=== PATIENT | female | born 1990 | race Caucasian/White ===

== ENCOUNTER 2016-07-27 13:38 | Emergency (ER) | payer OTHER ==
[~2016-07-27] VITALS: Ht 165.1 cm; Wt 56.0 kg
[2016-07-27 13:40] VITALS: BP 96/63; PULSE 77; RESP 12; TEMP 98.8; O2SAT 98
--- NOTE | 2016-07-27 14:02 | PD ---
Physical Exam Time Seen by Provider: 13:58 Narrative 26 year old female presents to ED for evaluation of abdominal pain; right side while she is sitting and left side while standing. 5-6/10-10/10. Pain is worse after eating. It is like a band above her umbilicus. Pain has worsened over the last 7 days. No urinary symptoms; some nausea. A couple episodes of diarrhea. No fever or chills. LMP last week. No vaginal discharge or bleeding. No history of abdominal surgeries. Data Data Last Documented VS Vital Signs Date Time Temp Pulse Resp B/P Pulse Ox O2 Delivery O2 Flow Rate FiO2 07/27/16 13:40 98.8 77 12 96/63 98 MDM Medical Record Reviewed: Yes Supervised Visit with INDIRA: No Narrative Course 26 year old female presents to ED for evaluation of abdominal pain x 7 days. Appears uncomfortable; without distress. VSS Condition: Stable Ciera Medrano Jul 27, 2016 14:02
[2016-07-27 15:25] VITALS: BP 99/51; PULSE 78; RESP 18; O2SAT 98
[2016-07-27] MEDS ORDERED: ALUMINUM/MAGNESIUM/SIMETH 30 ML CUP PO ONE (15:30)
[2016-07-27] MEDS ORDERED: ATROPINE/SCOPOLAM/HYOSCYAM/PB ELIXIR 10 ML CUP PO ONE (15:30)
[2016-07-27] MEDS ORDERED: LIDOCAINE VISCOUS 2% SOLN 15 ML UDC SWISH-SWAL ONE (15:30)
[2016-07-27 15:33] LABS: AUTOMATED NEUTROPHIL # 3.9 TH/MM3 (1.8-7.7); BASOPHIL % 0.4 % (0.0-2.0); EOSINOPHIL # 0.1 TH/MM3 (0-0.4); EOSINOPHIL % 1.3 % (0.0-4.0); HEMATOCRIT 40.6 % (35.0-46.0); HEMO FLAGS DIFF FINAL; LYMPH % 30.6 % (9.0-44.0); LYMPHOCYTE # 1.9 TH/MM3 (1.0-4.8); MEAN CELL VOLUME 85.5 FL (80.0-100.0); MEAN CORPUSCULAR HEMOGLOBIN 29.7 PG (27.0-34.0); MEAN CORPUSCULAR HGB CONC 34.7 % (32.0-36.0); MONO % 5.7 % (0.0-8.0); PLATELET COUNT 181 TH/MM3 (150-450); RED BLOOD COUNT 4.75 MIL/MM3 (4.00-5.30); RED CELL DISTRIBUTION WIDTH 13.5 % (11.6-17.2); WHITE BLOOD COUNT 6.2 TH/MM3 (4.0-11.0)
[2016-07-27 15:56] LABS: ANION GAP 7 MEQ/L (5-15); AST (GOT) 10 U/L (15-37); BICARBONATE 26.6 MEQ/L (21.0-32.0); BLOOD UREA NITROGEN 11 MG/DL (7-18); CHLORIDE 105 MEQ/L (98-107); GLOMERULAR FILTRATION RATE 71 ML/MIN (>89); POTASSIUM 4.1 MEQ/L (3.5-5.1); SODIUM (NA) 139 MEQ/L (136-145)
[2016-07-27 15:59] LABS: ALKALINE PHOSPHATASE 54 U/L (45-117); ALT (GPT) 20 U/L (10-53); TOTAL BILIRUBIN ADULT 0.7 MG/DL (0.2-1.0)
[2016-07-27] MEDS ORDERED: ZANT150T2 PO (16:16)
[2016-07-27] MEDS ORDERED: SUCR1TAB PO (16:16)
--- NOTE | 2016-07-27 16:16 | PD ---
HPI Chief Complaint: Abdominal Pain Time Seen by Provider: 14:44 Travel History International Travel<30 days: No Contact w/Intl Traveler<30days: No Traveled to known affect area: No History of Present Illness HPI This is a 26-year-old female who presents to the emergency department with 1 week of epigastric discomfort, intermittent, worse after she eats, moderate severity, nonradiating. She has had some nausea but no vomiting. She denies any fevers, chills, diarrhea, dysuria, or vaginal bleeding. She doesn't think she is and she's been having her regular menstrual cycle. [facility] Past Medical History Medical History: Denies Significant Hx Tetanus Vaccination: Unknown Influenza Vaccination: No ?: Not LMP: 07/20/16 Past Surgical History Surgical History: No Previous Surgery Social History Alcohol Use: No Tobacco Use: No Substance Use: No Allergies-Medications (Allergen,Severity, Reaction): Coded Allergies: No Known Allergies (Unverified , 07/27/16) Review of Systems Except as stated in HPI: all other systems reviewed are Neg Physical Exam Narrative GENERAL:Well appearing, no acute distress SKIN: Focused skin assessment warm and dry. HEAD: Atraumatic. Normocephalic. EYES: Pupils equal and round. No injection or drainage. ENT: Moist mucous membranes NECK: Trachea midline. CARDIOVASCULAR: Regular rate and rhythm. No murmur appreciated. RESPIRATORY: Clear to auscultation. Breath sounds equal bilaterally. GASTROINTESTINAL: Abdomen soft, tender to palpation in the epigastrium with no rebound or guarding. MUSCULOSKELETAL: No obvious deformities. NEUROLOGICAL: Awake and alert. No obvious cranial nerve deficits. Moving all extremities. PSYCHIATRIC: Appropriate mood and affect; insight and judgment normal. Data Data Last Documented VS Vital Signs Date Time Temp Pulse Resp B/P Pulse Ox O2 Delivery O2 Flow Rate FiO2 07/27/16 15:25 78 18 99/51 98 Room Air 07/27/16 13:40 98.8 Orders Complete Blood Count With Diff (07/27/16 15:08) Comprehensive Metabolic Panel (07/27/16 15:08) Lipase (07/27/16 15:08) ^ Insert Iv (07/27/16 15:08) Ed Urine Pregnancytest Poc (07/27/16 15:08) Al-Mag Hy-Si 40-40-4 Mg/Ml Liq (Mag-Al P (07/27/16 15:30) Lidocaine 2% Viscous (Xylocaine 2% Visco (07/27/16 15:30) Mruvd-Fbzasp-Tigtkx-Pb Liq ( Liq (07/27/16 15:30) Labs Laboratory Tests Test 07/27/16 15:12 White Blood Count 6.2 TH/MM3 Red Blood Count 4.75 MIL/MM3 Hemoglobin 14.1 GM/DL Hematocrit 40.6 % Mean Corpuscular Volume 85.5 FL Mean Corpuscular Hemoglobin 29.7 PG Mean Corpuscular Hemoglobin 34.7 % Concent Red Cell Distribution Width 13.5 % Platelet Count 181 TH/MM3 Mean Platelet Volume 8.5 FL Neutrophils (%) (Auto) 62.0 % Lymphocytes (%) (Auto) 30.6 % Monocytes (%) (Auto) 5.7 % Eosinophils (%) (Auto) 1.3 % Basophils (%) (Auto) 0.4 % Neutrophils # (Auto) 3.9 TH/MM3 Lymphocytes # (Auto) 1.9 TH/MM3 Monocytes # (Auto) 0.4 TH/MM3 Eosinophils # (Auto) 0.1 TH/MM3 Basophils # (Auto) 0.0 TH/MM3 CBC Comment DIFF FINAL Differential Comment Sodium Level 139 MEQ/L Potassium Level 4.1 MEQ/L Chloride Level 105 MEQ/L Carbon Dioxide Level 26.6 MEQ/L Anion Gap 7 MEQ/L Blood Urea Nitrogen 11 MG/DL Creatinine 0.95 MG/DL Estimat Glomerular Filtration 71 ML/MIN Rate Random Glucose 80 MG/DL Calcium Level 9.1 MG/DL Total Bilirubin 0.7 MG/DL Aspartate Amino Transf 10 U/L (AST/SGOT) Alanine Aminotransferase 20 U/L (ALT/SGPT) Alkaline Phosphatase 54 U/L Total Protein 7.9 GM/DL Albumin 4.5 GM/DL Lipase 80 U/L [facility] Medical Decision Making Medical Screen Exam Complete: Yes Emergency Medical Condition: Yes Interpretation(s) Afebrile, no tachycardia, normotensive No leukocytosis Electrolytes are reassuring Lipase is normal test is negative Differential Diagnosis Gastritis, ulcer disease, pancreatitis, , cholelithiasis, cholecystitis Narrative Course This is a 26-year-old female who presents to the emergency department with epigastric discomfort, mostly postprandial. This is her third visit to a health care provider for this. She was initially prescribed some Zofran and then hycosamine. She appears quite well and has a benign exam. Labs were obtained which were all reassuring including a normal lipase. NC test is negative. Patient was given a GI cocktail and will be discharged on Zantac for likely gastritis. Diagnosis Primary Impression: Gastritis Qualified Code: K29.00 - Acute gastritis without hemorrhage, unspecified gastritis type Referrals: Pilar Alfaro MD Patient Instructions: General Instructions Additional Instructions: If you develop severe or worsening abdominal pain, fever>100.4, persistent vomiting or inability to eat or drink return to the emergency department immediately. Follow up with your primary care physician in 1-2 days for a check-up. Med/Other Pt SpecificInfo: Prescription(s) given Scripts Sucralfate 1 Gm Tab1 Gm PO TID #90 TAB Ref 0 on empty stomach Prov:Lay Galindo MD 07/27/16 Ranitidine (Zantac)150 Mg Dvp226 Mg PO DAILY #30 TAB Ref 0 Prov:Lay Galindo MD 07/27/16 Disposition: 01 DISCHARGE HOME Condition: Stable Lay Galindo MD Jul 27, 2016 16:16
[2016-07-27] MEDS ORDERED: HYOS0.128 PO (16:25)
== END 2016-07-27 16:34 | disposition home or self-care (01) ==
LOC: NEPD 13:38
DX: K29.00 Acute gastritis without bleeding (principal)
CPT/HCPCS: 80053; 83690; 84703; 85025; 99284

== ENCOUNTER 2017-06-27 10:02 | Emergency (ER) | payer OTHER ==
[~2017-06-27] VITALS: Ht 165.1 cm; Wt 58.0 kg
[~2017-06-27 10:02] MED LIST: HYOS1TAB9 PO; SUCR1TAB PO; ZANT150T2 PO
[2017-06-27 10:26] VITALS: BP 122/70; PULSE 68; RESP 15; TEMP 97.4; O2SAT 99
--- NOTE | 2017-06-27 11:55 | RADRPT ---
EXAM DATE/TIME: 06/27/2017 11:30 [facility] COMPARISON: No previous studies available for comparison. INDICATIONS : Sudden onset middle chest pain. No known injury. MEDICAL HISTORY : None. SURGICAL HISTORY : None. ENCOUNTER: Initial ACUITY: 1 day PAIN SCORE: 4/10 LOCATION: middle chest FINDINGS: PA and lateral views of the chest demonstrate the lungs to be symmetrically aerated without evidence of mass, infiltrate or effusion. The cardiomediastinal contours are unremarkable. Osseous structure s are intact. CONCLUSION: 1. No acute cardiopulmonary disease. Stefano Almaguer MD on June 27, 2017 at 11:53 Board Certified Radiologist. This report was verified electronically.
[2017-06-27 12:43] LABS: AUTOMATED NEUTROPHIL # 4.8 TH/MM3 (1.8-7.7); BASOPHIL % 0.3 % (0.0-2.0); EOSINOPHIL # 0.1 TH/MM3 (0-0.4); EOSINOPHIL % 1.2 % (0.0-4.0); HEMATOCRIT 41.4 % (35.0-46.0); LYMPH % 27.8 % (9.0-44.0); MEAN CORPUSCULAR HGB CONC 33.8 % (32.0-36.0); MONOCYTE # 0.4 TH/MM3 (0-0.9); NEUT % 64.7 % (16.0-70.0); PLATELET COUNT 189 TH/MM3 (150-450); RED BLOOD COUNT 4.82 MIL/MM3 (4.00-5.30); RED CELL DISTRIBUTION WIDTH 12.9 % (11.6-17.2); WHITE BLOOD COUNT 7.3 TH/MM3 (4.0-11.0)
[2017-06-27 12:48] LABS: BACTERIA, URINE OCC /hpf; BILIRUBIN, URINE NEG (NEG); BLOOD, URINE NEG (NEG); GLUCOSE,URINE NEG (NEG); HYALINE CAST, URINE 1 /lpf (RARE); KETONE, URINE NEG (NEG); NITRITE,URINE NEG (NEG); SQUAMOUS EPITHELIAL CELL URINE 6 /hpf (0-5); URINE COLOR LIGHT-YELLOW (YELLW/STRAW); URINE LEUKOCYTE ESTERASE TRACE (NEG)
--- NOTE | 2017-06-27 13:03 | PD ---
HPI Chief Complaint: Chest Pain Time Seen by Provider: 12:46 Travel History International Travel<30 days: No Contact w/Intl Traveler<30days: No Traveled to known affect area: No History of Present Illness HPI 27yo F with no PMH presents to the ED with c/o right sided chest pain for 3 days. Said she works for the [employer] and went into a room full of cig smoke 3 days ago and since then has been having chest pain and sob. Said she feels generalized weakness. Denies any fever, cough, hemoptysis, history of PE/ DVT, n/v, abdominal pain, focal weakness or numbness. Said there is some heart disease from mothers side but does not know details. Pt went to urgent care 2 days ago and given a shot for pain and discharge with naproxen after EKG. Pt said the shot made it worst. Denies any cig smoking or drug use. PFSH Past Medical History ?: Not LMP: 06/2017 Social History Alcohol Use: No Tobacco Use: No Substance Use: No Allergies-Medications (Allergen,Severity, Reaction): Coded Allergies: No Known Allergies (Unverified Adverse Reaction, Unknown, 06/27/17) Reported Meds & Prescriptions Reported Meds & Active Scripts Active No Active Prescriptions or Reported Medications Review of Systems Except as stated in HPI: all other systems reviewed are Neg Physical Exam Narrative GENERAL: 27yo F not in distress. SKIN: Focused skin assessment warm/dry. HEAD: Atraumatic. Normocephalic. EYES: Pupils equal and round. No scleral icterus. No injection or drainage. ENT: No nasal bleeding or discharge. Mucous membranes pink and moist. NECK: Trachea midline. No JVD. CARDIOVASCULAR: Regular rate and rhythm. No murmur appreciated. RESPIRATORY: No accessory muscle use. Clear to auscultation. Breath sounds equal bilaterally. CHEST WALL: No rash. +TTP right chest. GASTROINTESTINAL: Abdomen soft, non-tender, nondistended. MUSCULOSKELETAL: No obvious deformities. No clubbing. No cyanosis. No edema. NEUROLOGICAL: Awake and alert. No obvious cranial nerve deficits. Motor grossly within normal limits. Normal speech. PSYCHIATRIC: Appropriate mood and affect; insight and judgment normal. Data Data Last Documented VS Vital Signs Date Time Temp Pulse Resp B/P (MAP) Pulse Ox O2 Delivery O2 Flow Rate FiO2 06/27/17 10:26 97.4 68 15 122/70 (87) 99 Orders Orders Electrocardiogram (06/27/17 ) Complete Blood Count With Diff (06/27/17 11:11) Comprehensive Metabolic Panel (06/27/17 11:11) Lipase (06/27/17 11:11) Ed Urine Pregnancytest Poc (06/27/17 11:11) Chest, Pa & Lat (06/27/17 ) Urinalysis - C+S If Indicated (06/27/17 12:23) Urine Culture (06/27/17 12:26) Troponin I (06/27/17 12:54) Acetaminophen (Tylenol) (06/27/17 13:15) Ketorolac Inj (Toradol Inj) (06/27/17 15:30) Labs Laboratory Tests Test 06/27/17 12:25 06/27/17 12:26 White Blood Count 7.3 TH/MM3 Red Blood Count 4.82 MIL/MM3 Hemoglobin 14.0 GM/DL Hematocrit 41.4 % Mean Corpuscular Volume 86.0 FL Mean Corpuscular Hemoglobin 29.0 PG Mean Corpuscular Hemoglobin Concent 33.8 % Red Cell Distribution Width 12.9 % Platelet Count 189 TH/MM3 Mean Platelet Volume 8.0 FL Neutrophils (%) (Auto) 64.7 % Lymphocytes (%) (Auto) 27.8 % Monocytes (%) (Auto) 6.0 % Eosinophils (%) (Auto) 1.2 % Basophils (%) (Auto) 0.3 % Neutrophils # (Auto) 4.8 TH/MM3 Lymphocytes # (Auto) 2.0 TH/MM3 Monocytes # (Auto) 0.4 TH/MM3 Eosinophils # (Auto) 0.1 TH/MM3 Basophils # (Auto) 0.0 TH/MM3 CBC Comment DIFF FINAL Differential Comment Blood Urea Nitrogen 9 MG/DL Creatinine 0.82 MG/DL Random Glucose 84 MG/DL Total Protein 7.6 GM/DL Albumin 4.6 GM/DL Calcium Level 8.6 MG/DL Alkaline Phosphatase 53 U/L Aspartate Amino Transf (AST/SGOT) 13 U/L Alanine Aminotransferase (ALT/SGPT) 23 U/L Total Bilirubin 0.8 MG/DL Sodium Level 138 MEQ/L Potassium Level 3.9 MEQ/L Chloride Level 104 MEQ/L Carbon Dioxide Level 30.2 MEQ/L Anion Gap 4 MEQ/L Estimat Glomerular Filtration Rate 83 ML/MIN Troponin I LESS THAN 0.02 NG/ML Lipase 81 U/L Urine Color LIGHT-YELLOW Urine Turbidity CLEAR Urine pH 5.0 Urine Specific [place] 1.004 Urine Protein NEG mg/dL Urine Glucose (UA) NEG mg/dL Urine Ketones NEG mg/dL Urine Occult Blood NEG Urine Nitrite NEG Urine Bilirubin NEG Urine Urobilinogen LESS THAN 2.0 MG/DL Urine Leukocyte Esterase TRACE Urine RBC LESS THAN 1 /hpf Urine WBC 1 /hpf Urine Squamous Epithelial Cells 6 /hpf Urine Bacteria OCC /hpf Urine Hyaline Casts 1 /lpf Microscopic Urinalysis Comment CATH-CULTURE IND MDM Medical Decision Making Medical Screen Exam Complete: Yes Emergency Medical Condition: Yes Interpretation(s) EKG: Sinus bradycardia at 58bpm. Normal axis. Mild ST depression III, aVF. No significant ST elevation. Differential Diagnosis Costochondritis vs. pneumonia vs. URI vs. atypical chest pain Narrative Course 27yo F with atypical chest pain. Pt is PERC negative. Labs reviewed, no leukocytosis. H/H normal. Troponin negative. Lipase negative. UA showed WBC 1. Culture not indicated. Pt has no cardiac risk factors. Chest pain is not worst with exertion but does feel more tired and lightheaded with walking lately. CXR negative. Pt is asking for work note. I feel that pt benefits from outpatient work up and do not feel that pt needs chest pain center now. Pt given acetaminophen and toradol with some relieve of pain. Pt is saturating at 99% on RA and speaking in complete sentences. Pt has naproxen at home. Return precautions given. Diagnosis Primary Impression: Atypical chest pain Patient Instructions: General Instructions Departure Forms: Tests/Procedures Additional Instructions: Please follow up with [facility] in 1-2 days. Return to the ED if symptoms worsen. Med/Other Pt SpecificInfo: No Change to Meds Scripts No Active Prescriptions or Reported Meds Disposition: 01 DISCHARGE HOME Condition: Stable Shahnaz Nguyen DO Jun 27, 2017 13:03
[2017-06-27 13:05] LABS: ALBUMIN 4.6 GM/DL (3.4-5.0); ALT (GPT) 23 U/L (10-53); AST (GOT) 13 U/L (15-37); BICARBONATE 30.2 MEQ/L (21.0-32.0); BLOOD UREA NITROGEN 9 MG/DL (7-18); CALCIUM 8.6 MG/DL (8.5-10.1); CHLORIDE 104 MEQ/L (98-107); CREATININE 0.82 MG/DL (0.50-1.00); GLOMERULAR FILTRATION RATE 83 ML/MIN (>89); GLUCOSE,RANDOM 84 MG/DL (74-106); SODIUM (NA) 138 MEQ/L (136-145)
[2017-06-27 13:08] LABS: ALKALINE PHOSPHATASE 53 U/L (45-117); TOTAL BILIRUBIN ADULT 0.8 MG/DL (0.2-1.0); TOTAL PROTEIN 7.6 GM/DL (6.4-8.2)
[2017-06-27] MEDS ORDERED: ACETAMINOPHEN 325 MG TAB PO ONE (13:15)
[2017-06-27] MEDS ORDERED: KETOROLAC TROMETHAMINE 60 MG/2 ML (IM) VIAL IM ONE (15:30)
[2017-06-27 16:41] VITALS: BP 120/67
--- NOTE | 2017-06-28 16:15 | EKG ---
Date Performed: 06/27/2017 Time Performed: 10:37:53 PTAGE: 27 years EKG: SINUS BRADYCARDIA BORDERLINE ECG NO PREVIOUS TRACING DOCTOR: Juan Alberto Nunez Interpretating Date/Time 06/28/2017 16:13:51
== END 2017-06-27 16:48 | disposition home or self-care (01) ==
LOC: NEPD 10:02
DX: R07.89 Other chest pain (principal); R00.1 Bradycardia, unspecified; R53.1 Weakness; R06.02 Shortness of breath
CPT/HCPCS: 71046; 80053; 81001; 83690; 84484; 84703; 85025; 87086; 93005; 96372; 99285; J1885